=== PATIENT | female | born 1995 | race Caucasian/White ===

== ENCOUNTER 2017-03-04 08:34 | Emergency (ER) | payer OTHER ==
[~2017-03-04] VITALS: Ht 157.5 cm; Wt 65.3 kg
[~2017-03-04 08:34] MED LIST: LANO30GM TOP; MOTR200T44 PO; TYLE325T5 PO; VITAPRTA PO
[2017-03-04 12:16] VITALS: BP 100/57
== END 2017-03-04 12:21 | disposition home or self-care (01) ==
LOC: EDBD 08:34 → M ED 10:14
DX: R25.9 Unspecified abnormal involuntary movements (principal); R61 Generalized hyperhidrosis; T50.995A Adverse effect of other drugs, medicaments and biological substances, initial encounter; X58.XXXA Exposure to other specified factors, initial encounter; Y92.89 Other specified places as the place of occurrence of the external cause